=== PATIENT | female | born 1985 | race Caucasian/White ===

== ENCOUNTER 2017-09-17 14:16 | Emergency (ER) | payer OTHER ==
[~2017-09-17] VITALS: Ht 170.2 cm; Wt 104.3 kg
== END 2017-09-17 18:58 | disposition home or self-care (01) ==
LOC: ED 14:16
DX: T76.21XA Adult sexual abuse, suspected, initial encounter (principal); Z23 Encounter for immunization; F17.200 Nicotine dependence, unspecified, uncomplicated; Z98.51 Tubal ligation status; Z90.49 Acquired absence of other specified parts of digestive tract
CPT/HCPCS: 80069; 80076; 82977; 83615; 84703; 85025; 86703; 86706; 86707; 90471; 90714; 99284

== ENCOUNTER 2017-11-17 13:00 | Emergency (ER) | payer OTHER ==
[~2017-11-17] VITALS: Ht 170.2 cm; Wt 104.3 kg
== END 2017-11-17 13:24 | disposition home or self-care (01) ==
LOC: ED 13:00
DX: H92.02 Otalgia, left ear (principal); R05 Cough; J02.9 Acute pharyngitis, unspecified

== ENCOUNTER 2017-11-25 11:53 | Emergency (ER) | payer OTHER ==
[~2017-11-25] VITALS: Ht 170.2 cm; Wt 104.3 kg
[2017-11-25] MEDS ORDERED: DIFLUCAN150 MG PO (12:32)
[2017-11-25] MEDS ORDERED: PSEUDOEPHEDRIN120 MG PO (12:32)
[2017-11-25] MEDS ORDERED: CIPRO HC OTIC S10 ML AS (12:32)
[2017-11-25] MEDS ORDERED: PREDNISONE20 MG PO (12:32)
[2017-11-25] MEDS ORDERED: IBUPROFEN600 MG PO (12:32)
== END 2017-11-25 12:37 | disposition home or self-care (01) ==
LOC: ED 11:53
DX: B37.3 Candidiasis of vulva and vagina (principal); H69.92 Unspecified Eustachian tube disorder, left ear; H60.92 Unspecified otitis externa, left ear; F17.200 Nicotine dependence, unspecified, uncomplicated
CPT/HCPCS: 99283